=== PATIENT | female | born 2000 | race Two or more races ===

== ENCOUNTER 2018-09-01 10:14 | Emergency (ER) | payer SELFPAY ==
[~2018-09-01] VITALS: Ht 170.2 cm; Wt 104.3 kg
[2018-09-01] MEDS ORDERED: NKM (10:24)
[2018-09-01 10:40] VITALS: BP 127/80
--- NOTE | 2018-09-01 10:44 | Emergency Room Report ---
History of Present Illness General Chief Complaint: Abdominal Pain Source: Patient Present Illness HPI 18-year-old female with no medical problems, no surgical history reports she is having pelvic cramping after intercourse the past 2 weeks intermittently, she vomited twice yesterday, otherwise has no other symptoms. Sure if she is not because she did not take a test. Normal discharge, vaginal bleeding, current pain or current cramping, just reports happens after she has intercourse. She has no symptoms at all.he denies change in sex p denies any other complaints. Allergies: Coded Allergies: No Known Allergies (Unverified , 09/01/18) Patient History Past Medical History: see triage record Last Menstrual Period: 06/2018 : 1 Para: 1 Reviewed Nursing Documentation: PMH: Agreed; PSxH: Agreed Nursing Documentation-PMH Past Medical History: No Stated History Review of Systems All Other Systems: negative except mentioned in HPI Physical Exam Vital Signs Date Time Temp Pulse Resp B/P (MAP) Pulse Ox O2 Delivery O2 Flow Rate FiO2 09/01/18 10:17 98.7 100 18 133/83 98 Room Air 98.8 Sp02 EP Interpretation: reviewed, normal General Appearance: no apparent distress, alert, non-toxic Head: normocephalic Eyes: bilateral eye normal inspection, bilateral eye PERRL, bilateral eye EOMI ENT: normal ENT inspection, hearing grossly normal, normal pharynx, no angioedema, normal voice, moist mucus membranes Neck: normal inspection, full range of motion, supple, supple/symm/no masses Respiratory: chest non-tender, lungs clear, normal breath sounds, chest symmetrical, palpation of chest normal Cardiovascular #1: normal peripheral pulses, regular rate, rhythm Cardiovascular #2: 2+ radial (R), 2+ radial (L) Gastrointestinal: normal inspection, non tender, soft, no mass, no guarding, no rebound Rectal: deferred Genitourinary: normal inspection, no CVA tenderness, adnexa normal, bladder normal, cervix normal, ext genitalia/vag normal, os closed, urethra normal, uterus normal Musculoskeletal: back normal, gait/station normal, normal range of motion, non- tender, no calf tenderness Neurologic: alert, responsive, bottle feeder III-XII nml as tested, motor strength/tone normal, sensory intact, speech normal Psychiatric: judgement/insight normal, memory normal, mood/affect normal, no suicidal/homicidal ideation Skin: normal color, no rash, warm/dry, normal turgor Lymphatic: no adenopathy Medical Decision Making Diagnostic Impression: Primary Impression: Pelvic pain Additional Impression: UTI (urinary tract infection) ER Course pelvic with Brenden at bedside registered clinical dietitian, normal exam. labs, test normal , UA with + UTI, will dc home with macrobid. gc/chlamydia sent, wet prep pending. Last Vital Signs Date Time Temp Pulse Resp B/P (MAP) Pulse Ox O2 Delivery O2 Flow Rate FiO2 09/01/18 10:17 98.7 100 18 133/83 98 Room Air 98.8 Disposition: HOME, SELF-CARE Condition: Stable COLLEEN MCCARTNEY M.D Sep 01, 2018 10:44
[2018-09-01] MEDS ORDERED: Acetaminophen 500mg (ES) tab ORAL ONE (10:45)
[2018-09-01 11:14] LABS: APPEARANCE,URINE CLEAR; BILIRUBIN, URINE NEGATIVE (NEGATIVE); COLOR,URINE PALE YELLOW; GLUCOSE, URINE (UA) NEGATIVE (NEGATIVE); KETONES,URINE NEGATIVE (NEGATIVE); LEUKOCYTE ESTERASE ,URINE 3+ (NEGATIVE); NITRITE,URINE NEGATIVE (NEGATIVE); PH,URINE 7 (4.5-8.0); PROTEIN,URINE NEGATIVE (NEGATIVE); UROBILINOGEN,URINE NORMAL MG/DL (0.0-1.0)
[2018-09-01 11:16] LABS: BASOPHILS % (AUTO) 0.9 % (0.0-2.0); EOSINOPHILS % (AUTO) 1.4 % (0.0-3.0); HEMATOCRIT 41.8 % (37.0-47.0); HEMOGLOBIN 14.2 G/DL (12.0-16.0); MEAN CORPUSCULAR VOLUME 85 FL (80-99); MONOCYTES % (AUTO) 4.7 % (1.0-10.0); PLATELET COUNT 385 K/UL (150-450); RED BLOOD COUNT 4.93 M/UL (4.20-5.40); RED CELL DISTRIBUTION WIDTH 11.6 % (11.6-14.8); WHITE BLOOD COUNT 10.3 K/UL (4.8-10.8)
[2018-09-01 11:20] LABS: ANION GAP 9 mmol/L (5-15); BLOOD UREA NITROGEN 9 mg/dL (7-18); CALCIUM 8.6 MG/DL (8.5-10.1); CARBON DIOXIDE 26 MMOL/L (21-32); CHLORIDE 105 MMOL/L (98-107); CREATININE 0.8 MG/DL (0.55-1.30); POTASSIUM 3.7 MMOL/L (3.5-5.1); SODIUM 140 MMOL/L (136-145)
[2018-09-01] MEDS ORDERED: NITROFURANTOIN100 M2 ORAL (12:23)
[2018-09-01] MEDS ORDERED: IBUPROFEN600 MG ORAL (12:23)
[2018-09-01 12:31] VITALS: BP 127/80
== END 2018-09-01 12:31 | disposition home or self-care (01) ==
LOC: EDBD 10:14 → EMR 11:34
DX: R10.2 Pelvic and perineal pain (principal); N39.0 Urinary tract infection, site not specified
CPT/HCPCS: 36415; 80048; 81003; 81025; 85025; 87086; 87210; 87491; 87590; 99284